=== PATIENT | female | born 1950 | race Caucasian/White ===

== ENCOUNTER 2017-07-09 21:33 | Emergency (ER) | payer MEDICARE, OTHER | END 2017-07-10 04:23 | disposition home or self-care (01) | LOC: FTE 21:33 | DX: I51.7 Cardiomegaly (principal) | CPT/HCPCS: 71045; 99283-25 ==

== ENCOUNTER 2017-12-04 23:07 | Inpatient (IN) | payer MEDICARE, OTHER ==
[2017-12-05 00:07] LABS: ADD MAN DIFF? NO
[2017-12-05 00:09] LABS: BASOPHILS % 0.4 % (0.0-2.0); EOSINOPHILS # 0.1 10^3/ul (0.0-0.5); EOSINOPHILS % 1.3 % (0.0-7.0); HEMATOCRIT 25.8 % (37.0-47.0); HEMOGLOBIN 8.1 g/dl (12.0-16.0); LYMPHOCYTES # 3.7 10^3/ul (0.8-2.9); LYMPHOCYTES % 33.8 % (15.0-51.0); MEAN CORPUSCULAR HEMOGLOBIN 29.6 pg (29.0-33.0); MEAN CORPUSCULAR HGB CONC 31.4 g/dl (32.0-37.0); MEAN CORPUSCULAR VOLUME 94.2 fl (82.0-101.0); MONOCYTE # 0.9 10^3/ul (0.3-0.9); MONOCYTES % 7.7 % (0.0-11.0); NEUTROPHIL # 6.2 10^3/ul (1.6-7.5); NEUTROPHILS % 56.4 % (39.0-77.0); PLATELET COUNT 344 10^3/UL (140-415); RED BLOOD COUNT 2.74 10^6/ul (4.20-5.40); RED CELL DISTRIBUTION WIDTH 13.4 % (11.5-14.5)
[2017-12-05 00:33] LABS: ANION GAP 14 (8-16); BLOOD UREA NITROGEN 40 mg/dl (7-20); CALCIUM 8.2 mg/dl (8.4-10.2); CARBON DIOXIDE 24 mmol/L (21-31); CHLORIDE 113 mmol/L (97-110); CREATININE 3.68 mg/dl (0.44-1.00); GLUCOSE 106 mg/dl (70-220); POTASSIUM 4.2 mmol/L (3.5-5.1); SODIUM 147 mmol/L (135-144)
[2017-12-05 00:34] LABS: INR 0.92; PROTIME 12.4 Sec (11.9-14.9)
[2017-12-05 00:39] LABS: PARTIAL THROMBOPLASTIN TIME 31.5 Sec (25.0-35.0)
[2017-12-05 01:30] LABS: ADD UMIC YES; UR AMORPHOUS CRYSTAL FEW /HPF (NONE SEEN); UR ASCORBIC ACID NEGATIVE (NEGATIVE); UR BACTERIA FEW /HPF (NONE SEEN); UR BILIRUBIN (Dip) NEGATIVE (NEGATIVE); UR BLOOD (Dip) 1+ mg/dL (NEGATIVE); UR CLARITY SLIGHTLY CLOUDY (CLEAR); UR COLOR STRAW (YELLOW); UR GLUCOSE (Dip) 1+ mg/dL (NEGATIVE); UR KETONES (Dip) NEGATIVE (NEGATIVE); UR LEUKOCYTE ESTERASE (Dip) 2+ Leu/ul (NEGATIVE); UR NITRITE (Dip) NEGATIVE (NEGATIVE); UR RBC 10 /HPF (0-5); UR SPECIFIC GRAVITY (Dip) 1.005 (1.003-1.030); UR SQUAMOUS EPITHELIAL CELL FEW /HPF (FEW); UR TOTAL PROTEIN (Dip) NEGATIVE (NEGATIVE); UR UROBILINOGEN (Dip) NEGATIVE (NEGATIVE); UR WBC 12 /HPF (0-5)
[2017-12-05] MEDS ORDERED: NACL 0.9% 3 ML SYG IV (02:00)
[2017-12-05] MEDS ORDERED: BISACODYL (EC) 5 MG TAB PO (02:00)
[2017-12-05 04:13] LABS: SODIUM,URINE RANDOM 67 mmol/L (30-90)
[2017-12-05 04:49] LABS: OSMOLALITY 305 mOsm/kg (280-295)
[2017-12-05 05:24] LABS: OSMOLALITY,URINE 251 mOsm/kg (250-1200)
[2017-12-05 07:16] LABS: ADD UMIC YES; UR ASCORBIC ACID NEGATIVE (NEGATIVE); UR BACTERIA FEW /HPF (NONE SEEN); UR BILIRUBIN (Dip) NEGATIVE (NEGATIVE); UR BLOOD (Dip) 1+ mg/dL (NEGATIVE); UR CLARITY CLEAR (CLEAR); UR COLOR COLORLESS (YELLOW); UR GLUCOSE (Dip) 1+ mg/dL (NEGATIVE); UR KETONES (Dip) NEGATIVE (NEGATIVE); UR LEUKOCYTE ESTERASE (Dip) 3+ Leu/ul (NEGATIVE); UR NITRITE (Dip) NEGATIVE (NEGATIVE); UR RBC 3 /HPF (0-5); UR SPECIFIC GRAVITY (Dip) 1.006 (1.003-1.030); UR SQUAMOUS EPITHELIAL CELL FEW /HPF (FEW); UR TOTAL PROTEIN (Dip) NEGATIVE (NEGATIVE); UR UROBILINOGEN (Dip) NEGATIVE (NEGATIVE); UR WBC 4 /HPF (0-5)
[2017-12-05 09:04] LABS: HAAIG REFLEX REFLEX FILED
[2017-12-05] MEDS: FERROUS SULFATE (EC) 325 MG TAB PO ×2 (09:30→21:04)
[2017-12-05] MEDS: ACETAMINOPHEN 325 MG TAB PO ×2 (09:30→21:55)
[2017-12-05] MEDS: AMLODIPINE 10 MG TAB PO (09:31)
[2017-12-05 10:11] LABS: HEPATITIS B SURFACE ANTIGEN NEGATIVE (NEGATIVE)
[2017-12-05 10:29] LABS: HEPATITIS B CORE ANTIBODY NEGATIVE (NEGATIVE); HEPATITIS C VIRAL ANTIBODY NEGATIVE (NEGATIVE)
[2017-12-05 11:19] LABS: HIV 1&2 ANTIBODY NEGATIVE (NEGATIVE)
[2017-12-05] MEDS: ONDANSETRON 4 MG INJ IV (13:55)
[2017-12-05] MEDS ORDERED: HEPARIN 1000 UNITS/ML 10 ML INJ (18:27)
[2017-12-05] MEDS ORDERED: IOHEXOL 300MG/ML 30 ML BTL (18:27)
[2017-12-05] MEDS ORDERED: LIDOCAINE 1% (MPF) 30 ML INJ (18:27)
[2017-12-05] MEDS ORDERED: HEPARIN 1000 UNITS/NS (A-LINE) 0 ML (18:27)
[2017-12-06] MEDS: HEPARIN 1000 UNITS/ML 10 ML INJ INJ
[2017-12-06] MEDS: HEPARIN 1000 UNITS/ML 10 ML INJ IRR
[2017-12-06] MEDS: LIDOCAINE 1% (MDV) 50 ML INJ INJ
[2017-12-06 05:26] LABS: ADD MAN DIFF? NO
[2017-12-06 05:33] LABS: BASOPHILS % 0.4 % (0.0-2.0); EOSINOPHILS # 0.1 10^3/ul (0.0-0.5); EOSINOPHILS % 1.9 % (0.0-7.0); HEMATOCRIT 23.8 % (37.0-47.0); HEMOGLOBIN 7.5 g/dl (12.0-16.0); LYMPHOCYTES # 2.7 10^3/ul (0.8-2.9); LYMPHOCYTES % 35.5 % (15.0-51.0); MEAN CORPUSCULAR HEMOGLOBIN 30.1 pg (29.0-33.0); MEAN CORPUSCULAR HGB CONC 31.5 g/dl (32.0-37.0); MEAN CORPUSCULAR VOLUME 95.6 fl (82.0-101.0); MONOCYTE # 0.7 10^3/ul (0.3-0.9); NEUTROPHILS % 52.8 % (39.0-77.0); PLATELET COUNT 308 10^3/UL (140-415); RED BLOOD COUNT 2.49 10^6/ul (4.20-5.40); RED CELL DISTRIBUTION WIDTH 13.1 % (11.5-14.5)
[2017-12-06 05:33] LABS: WHITE BLOOD COUNT 7.5 10^3/ul (4.8-10.8)
[2017-12-06 05:34] LABS: RETICULOCYTE COUNT # 0.033 X10^6 (0.020-0.110); RETICULOCYTE COUNT % 1.4 % (0.5-1.5)
[2017-12-06 05:34] LABS: RETICULOCYTE RBC 2.44
[2017-12-06 05:43] LABS: ALANINE AMINOTRANSFERASE 14 IU/L (13-69); ALBUMIN 3.4 g/dl (3.3-4.9); ALBUMIN/GLOBULIN RATIO 1.13; ALKALINE PHOSPHATASE 140 IU/L (42-121); ANION GAP 15 (8-16); ASPARTATE AMINO TRANSFERASE 12 IU/L (15-46); BILIRUBIN,INDIRECT 0.2 mg/dl (0-1.1); BILIRUBIN,TOTAL 0.2 mg/dl (0.2-1.3); BLOOD UREA NITROGEN 43 mg/dl (7-20); CALCIUM 8.2 mg/dl (8.4-10.2); CARBON DIOXIDE 23 mmol/L (21-31); CHLORIDE 112 mmol/L (97-110); CHOL/HDL RATIO 4.2 RATIO; CHOLESTEROL 158 mg/dl (100-200); GLUCOSE 99 mg/dl (70-220); HDL CHOLESTEROL 37 mg/dl (35-98); IRON 50 ug/dl (35-150); LDL CHOLESTEROL,CALCULATED 84 mg/dl; MAGNESIUM 2.1 mg/dl (1.7-2.5); POTASSIUM 4.2 mmol/L (3.5-5.1); SODIUM 146 mmol/L (135-144); TOTAL PROTEIN 6.4 g/dl (6.1-8.1); TRIGLYCERIDES 183 mg/dl (0-149)
[2017-12-06 05:52] LABS: % IRON SATURATION 20 % SAT (22-52); TOTAL IRON BINDING CAPACITY 246 ug/dl (241-421)
[2017-12-06] MEDS: FERROUS SULFATE (EC) 325 MG TAB PO ×2 (08:37→21:09)
[2017-12-06] MEDS: AMLODIPINE 10 MG TAB PO (08:37)
[2017-12-06] MEDS ORDERED: PROPOFOL 20 ML (10:16)
[2017-12-06] MEDS ORDERED: FENTAnyl 50 MCG/ML VIAL (10:16)
[2017-12-06] MEDS ORDERED: CEFAZOLIN 1 GM INJ (10:16)
[2017-12-06] MEDS ORDERED: MIDAZOLAM 1 MG/ML 2 ML INJ (10:16)
[2017-12-06] MEDS ORDERED: LIDOCAINE 1% (MDV) 20 ML INJ ×2 (10:23→10:38)
[2017-12-06] MEDS ORDERED: HEPARIN 1000 UNITS/ML 10 ML INJ (10:25)
[2017-12-06 10:33] LABS: HEMOGLOBIN A1C 5.6 % (0-5.9)
[2017-12-06] MEDS ORDERED: LIDOCAINE 2% (SDV) 5 ML INJ (10:38)
[2017-12-06] MEDS ORDERED: PHENYLephrine (100 MCG/ML) 5ML SYG (10:39)
[2017-12-06] MEDS ORDERED: LIDOCAINE 1% (MPF) 30 ML INJ (10:40)
[2017-12-06] MEDS ORDERED: METOCLOPRAMIDE 10 MG INJ (10:46)
[2017-12-06] MEDS ORDERED: ONDANSETRON 4 MG INJ (10:46)
[2017-12-06] MEDS ORDERED: DEXAMETHASONE 4 MG/ML 1 ML INJ (10:47)
[2017-12-06] MEDS ORDERED: HYDROmorphONE (0.2 MG/ML) 10ML SYG IV ×3 (11:20→11:30)
[2017-12-06] MEDS: HYDROmorphONE (0.2 MG/ML) 10ML SYG IV ×2 (11:23→11:29)
[2017-12-06] MEDS ORDERED: EPHEDrine SULFATE 50 MG/5 ML SYG IV (11:30)
[2017-12-06] MEDS ORDERED: OXYCODONE/ACETAMINOPHEN (5/325) TAB PO (11:30)
[2017-12-06] MEDS ORDERED: LABETALOL HCL 20MG INJ IV (11:30)
[2017-12-06] MEDS ORDERED: ONDANSETRON 4 MG INJ IV (11:30)
[2017-12-06] MEDS ORDERED: hydrALAzine 20 MG INJ IV (11:30)
[2017-12-06] MEDS ORDERED: FENTAnyl 50 MCG/ML VIAL IV ×3 (11:30)
[2017-12-06] MEDS ORDERED: METOCLOPRAMIDE 10 MG INJ IV (11:30)
[2017-12-06] MEDS: EPOETIN 4000 UNITS/1 ML INJ (ESRD) SC (17:19)
[2017-12-06] MEDS: HEPARIN 1000 UNITS/ML 10 ML INJ CATHETER (18:21)
[2017-12-07] MEDS: DOCUSATE SODIUM 100 MG CAP PO (00:46)
[2017-12-07] MEDS: ACETAMINOPHEN 325 MG TAB PO ×3 (00:46→21:30)
[2017-12-07 05:28] LABS: ADD MAN DIFF? NO
[2017-12-07 05:41] LABS: BASOPHILS % 0.1 % (0.0-2.0); HEMATOCRIT 24.7 % (37.0-47.0); HEMOGLOBIN 7.9 g/dl (12.0-16.0); LYMPHOCYTES # 1.4 10^3/ul (0.8-2.9); LYMPHOCYTES % 13.2 % (15.0-51.0); MEAN CORPUSCULAR HEMOGLOBIN 29.4 pg (29.0-33.0); MEAN CORPUSCULAR VOLUME 91.8 fl (82.0-101.0); MONOCYTE # 0.5 10^3/ul (0.3-0.9); MONOCYTES % 4.7 % (0.0-11.0); NEUTROPHIL # 8.7 10^3/ul (1.6-7.5); NEUTROPHILS % 81.4 % (39.0-77.0); PLATELET COUNT 309 10^3/UL (140-415); RED BLOOD COUNT 2.69 10^6/ul (4.20-5.40); RED CELL DISTRIBUTION WIDTH 12.8 % (11.5-14.5)
[2017-12-07 05:41] LABS: WHITE BLOOD COUNT 10.7 10^3/ul (4.8-10.8)
[2017-12-07 05:54] LABS: ANION GAP 17 (8-16); BLOOD UREA NITROGEN 33 mg/dl (7-20); CALCIUM 8.4 mg/dl (8.4-10.2); CARBON DIOXIDE 24 mmol/L (21-31); CHLORIDE 106 mmol/L (97-110); CREATININE 3.17 mg/dl (0.44-1.00); GLUCOSE 126 mg/dl (70-220); POTASSIUM 4.4 mmol/L (3.5-5.1); SODIUM 143 mmol/L (135-144)
[2017-12-07] MEDS: AMLODIPINE 10 MG TAB PO (09:00)
[2017-12-07] MEDS: FERROUS SULFATE (EC) 325 MG TAB PO ×2 (09:22→21:30)
[2017-12-07] MEDS: ONDANSETRON 4 MG INJ IV (17:19)
[2017-12-07] MEDS: HEPARIN 1000 UNITS/ML 10 ML INJ CATHETER (17:23)
[2017-12-07] MEDS: SOD FERRIC GLUC COMPLX 125 MG in SOD CHLORIDE 0.9% 100 ML IVPB (19:04)
[2017-12-08 05:58] LABS: ADD MAN DIFF? NO
[2017-12-08 06:08] LABS: BASOPHIL # 0.1 10^3/ul (0.0-0.1); BASOPHILS % 0.5 % (0.0-2.0); EOSINOPHILS # 0.1 10^3/ul (0.0-0.5); EOSINOPHILS % 0.6 % (0.0-7.0); HEMATOCRIT 25.4 % (37.0-47.0); HEMOGLOBIN 8.1 g/dl (12.0-16.0); LYMPHOCYTES % 28.5 % (15.0-51.0); MEAN CORPUSCULAR HEMOGLOBIN 29.8 pg (29.0-33.0); MEAN CORPUSCULAR HGB CONC 31.9 g/dl (32.0-37.0); MEAN CORPUSCULAR VOLUME 93.4 fl (82.0-101.0); MEAN PLATELET VOLUME 10.2 fl (7.4-10.4); NEUTROPHIL # 6.5 10^3/ul (1.6-7.5); NEUTROPHILS % 60.6 % (39.0-77.0); PLATELET COUNT 273 10^3/UL (140-415); RED BLOOD COUNT 2.72 10^6/ul (4.20-5.40); RED CELL DISTRIBUTION WIDTH 13.2 % (11.5-14.5)
[2017-12-08 06:08] LABS: WHITE BLOOD COUNT 10.7 10^3/ul (4.8-10.8)
[2017-12-08 06:31] LABS: ANION GAP 18 (8-16); BLOOD UREA NITROGEN 35 mg/dl (7-20); CALCIUM 8.3 mg/dl (8.4-10.2); CARBON DIOXIDE 28 mmol/L (21-31); CHLORIDE 102 mmol/L (97-110); CREATININE 3.05 mg/dl (0.44-1.00); GLUCOSE 105 mg/dl (70-220); POTASSIUM 3.9 mmol/L (3.5-5.1); SODIUM 144 mmol/L (135-144)
[2017-12-08] MEDS: FERROUS SULFATE (EC) 325 MG TAB PO ×2 (08:09→20:22)
[2017-12-08] MEDS: AMLODIPINE 10 MG TAB PO (08:09)
[2017-12-08] MEDS: SOD FERRIC GLUC COMPLX 125 MG in SOD CHLORIDE 0.9% 100 ML IVPB (16:09)
[2017-12-08] MEDS: ACETAMINOPHEN 325 MG TAB PO (16:12)
[2017-12-08] MEDS: FAMOTIDINE 20 MG TAB PO (20:22)
[2017-12-08 20:52] LABS: HEPATITIS B SURFACE ANTIBODY NEGATIVE (NEGATIVE)
[2017-12-09] MEDS: ONDANSETRON 4 MG INJ IV (00:54)
[2017-12-09] MEDS: HEPARIN 1000 UNITS/ML 10 ML INJ CATHETER (02:23)
[2017-12-09 06:12] LABS: ADD MAN DIFF? NO
[2017-12-09 06:18] LABS: WHITE BLOOD COUNT 13.9 10^3/ul (4.8-10.8)
[2017-12-09 06:18] LABS: BASOPHIL # 0.1 10^3/ul (0.0-0.1); BASOPHILS % 0.4 % (0.0-2.0); EOSINOPHILS % 0.2 % (0.0-7.0); HEMATOCRIT 27.1 % (37.0-47.0); HEMOGLOBIN 8.8 g/dl (12.0-16.0); LYMPHOCYTES # 1.8 10^3/ul (0.8-2.9); LYMPHOCYTES % 13.2 % (15.0-51.0); MEAN CORPUSCULAR HEMOGLOBIN 30.1 pg (29.0-33.0); MEAN CORPUSCULAR HGB CONC 32.5 g/dl (32.0-37.0); MEAN CORPUSCULAR VOLUME 92.8 fl (82.0-101.0); MEAN PLATELET VOLUME 10.1 fl (7.4-10.4); MONOCYTE # 1.1 10^3/ul (0.3-0.9); MONOCYTES % 7.7 % (0.0-11.0); NEUTROPHIL # 10.8 10^3/ul (1.6-7.5); NEUTROPHILS % 77.5 % (39.0-77.0); PLATELET COUNT 226 10^3/UL (140-415); RED BLOOD COUNT 2.92 10^6/ul (4.20-5.40); RED CELL DISTRIBUTION WIDTH 13.1 % (11.5-14.5)
[2017-12-09 06:41] LABS: MAGNESIUM 1.9 mg/dl (1.7-2.5)
[2017-12-09 06:45] LABS: ANION GAP 15 (8-16); BLOOD UREA NITROGEN 23 mg/dl (7-20); CALCIUM 8.7 mg/dl (8.4-10.2); CARBON DIOXIDE 29 mmol/L (21-31); CHLORIDE 103 mmol/L (97-110); CREATININE 2.53 mg/dl (0.44-1.00); GLUCOSE 127 mg/dl (70-220); SODIUM 143 mmol/L (135-144)
[2017-12-09] MEDS: FERROUS SULFATE (EC) 325 MG TAB PO (09:27)
[2017-12-09] MEDS: AMLODIPINE 10 MG TAB PO (09:27)
[2017-12-09] MEDS: SOD FERRIC GLUC COMPLX 125 MG in SOD CHLORIDE 0.9% 100 ML IVPB (17:21)
[2017-12-10] MEDS ORDERED: EPOETIN 4000 UNITS/1 ML INJ (ESRD) SC (17:00)
== END 2017-12-09 19:10 | disposition home or self-care (01) | DRG 674 ==
LOC: PP2 12-05 01:48 → E/R 23:07 → PP2 12-05 01:48
PROC: 0JH63XZ Insertion of Tunneled Vascular Access Device into Chest Subcutaneous Tissue and Fascia, Percutaneous Approach (ICD-10-PCS; principal; 2017-12-06 10:02)
PROC: 02HV33Z Insertion of Infusion Device into Superior Vena Cava, Percutaneous Approach (ICD-10-PCS; 2017-12-06 10:07)
PROC: 5A1D70Z Performance of Urinary Filtration, Intermittent, Less than 6 Hours Per Day (ICD-10-PCS; 2017-12-06 10:07)
PROC: 5A1D70Z Performance of Urinary Filtration, Intermittent, Less than 6 Hours Per Day (ICD-10-PCS; 2017-12-06 10:07)
PROC: 5A1D70Z Performance of Urinary Filtration, Intermittent, Less than 6 Hours Per Day (ICD-10-PCS; 2017-12-06 10:07)
PROC: 5A1D70Z Performance of Urinary Filtration, Intermittent, Less than 6 Hours Per Day (ICD-10-PCS; 2017-12-06 10:07)
DX: I12.0 Hypertensive chronic kidney disease with stage 5 chronic kidney disease or end stage renal disease (principal); N18.5 Chronic kidney disease, stage 5; N17.9 Acute kidney failure, unspecified; D63.8 Anemia in other chronic diseases classified elsewhere; E78.5 Hyperlipidemia, unspecified
CPT/HCPCS: 36415; 71045; 76775; 80048; 80053; 80061; 81001; 82607; 82728; 83036; 83540; 83735; 83930; 83935; 84300; 84443; 85025; 85045; 85610; 85730; 86703; 86704; 86706; 86709; 86803; 86850; 86900; 86901; 87340; 90935; 93005; 93923; 93970; 99285-25; G0378

== ENCOUNTER 2017-12-10 19:22 | Emergency (ER) | payer MEDICARE, OTHER | END 2017-12-10 23:00 | disposition home or self-care (01) | LOC: FTE 19:22 | DX: Z00.00 Encounter for general adult medical examination without abnormal findings (principal); R05 Cough | CPT/HCPCS: 71046; 99283-25 ==

== ENCOUNTER → 2018-09-29 | Outpatient (CLI) | payer MEDICARE, OTHER | END | disposition home or self-care (01) | LOC: C/S 13:10 | DX: M25.512 Pain in left shoulder (principal) | CPT/HCPCS: 73200 ==

== ENCOUNTER 2019-02-19 15:33 | Inpatient (IN) | payer MEDICARE, OTHER ==
[2019-02-19 16:24] LABS: ADD MAN DIFF? NO
[2019-02-19 16:27] LABS: BASOPHILS % 0.4 % (0.0-2.0); EOSINOPHILS # 0.1 10^3/ul (0.0-0.5); EOSINOPHILS % 0.6 % (0.0-7.0); HEMATOCRIT 35.4 % (37.0-47.0); HEMOGLOBIN 12.2 g/dl (12.0-16.0); LYMPHOCYTES # 2.2 10^3/ul (0.8-2.9); LYMPHOCYTES % 20.6 % (15.0-51.0); MEAN CORPUSCULAR HEMOGLOBIN 32.7 pg (29.0-33.0); MEAN CORPUSCULAR HGB CONC 34.5 g/dl (32.0-37.0); MEAN CORPUSCULAR VOLUME 94.9 fl (82.0-101.0); MEAN PLATELET VOLUME 9.7 fl (7.4-10.4); MONOCYTE # 1.1 10^3/ul (0.3-0.9); MONOCYTES % 10.4 % (0.0-11.0); NEUTROPHIL # 7.2 10^3/ul (1.6-7.5); NEUTROPHILS % 67.5 % (39.0-77.0); PLATELET COUNT 218 10^3/UL (140-415); RED BLOOD COUNT 3.73 10^6/ul (4.20-5.40); RED CELL DISTRIBUTION WIDTH 13.6 % (11.5-14.5)
[2019-02-19 16:27] LABS: WHITE BLOOD COUNT 10.6 10^3/ul (4.8-10.8)
[2019-02-19 16:40] LABS: ADD UMIC YES; UR ASCORBIC ACID NEGATIVE (NEGATIVE); UR BACTERIA FEW /HPF (NONE SEEN); UR BILIRUBIN (Dip) NEGATIVE (NEGATIVE); UR BLOOD (Dip) 3+ mg/dL (NEGATIVE); UR CLARITY CLOUDY (CLEAR); UR COLOR RED (YELLOW); UR GLUCOSE (Dip) 1+ mg/dL (NEGATIVE); UR KETONES (Dip) NEGATIVE (NEGATIVE); UR LEUKOCYTE ESTERASE (Dip) 1+ Leu/ul (NEGATIVE); UR MUCUS FEW /HPF (NONE SEEN); UR NITRITE (Dip) NEGATIVE (NEGATIVE); UR RBC 20 /HPF (0-5); UR SPECIFIC GRAVITY (Dip) 1.009 (1.003-1.030); UR SQUAMOUS EPITHELIAL CELL MANY /HPF (FEW); UR TOTAL PROTEIN (Dip) 2+ mg/dl (NEGATIVE); UR UROBILINOGEN (Dip) NEGATIVE (NEGATIVE); UR WBC 32 /HPF (0-5)
[2019-02-19 17:23] LABS: ALBUMIN 5.5 g/dl (3.3-4.9); ALBUMIN/GLOBULIN RATIO 1.17; ALKALINE PHOSPHATASE 95 IU/L (42-121); ANION GAP 7 (5-13); ASPARTATE AMINO TRANSFERASE 234 IU/L (15-46); BILIRUBIN,INDIRECT 1.6 mg/dl (0-1.1); BILIRUBIN,TOTAL 1.6 mg/dl (0.2-1.3); BLOOD UREA NITROGEN 24 mg/dl (7-20); CALCIUM 8.6 mg/dl (8.4-10.2); CARBON DIOXIDE 37 mmol/L (21-31); CHLORIDE 96 mmol/L (97-110); CREATININE 2.96 mg/dl (0.44-1.00); Estimated GFR 16 mL/min (>60); GLUCOSE 128 mg/dl (70-220); SODIUM 140 mmol/L (135-144); TOTAL PROTEIN 10.2 g/dl (6.1-8.1)
[2019-02-19 17:26] LABS: ALANINE AMINOTRANSFERASE < 6 IU/L (13-69)
[2019-02-19 17:27] LABS: POTASSIUM 3.9 mmol/L (3.5-5.1)
[2019-02-19 17:30] LABS: INR 0.95; PROTIME 12.8 Sec (11.9-14.9)
[2019-02-19 17:31] LABS: PARTIAL THROMBOPLASTIN TIME 28.3 Sec (23.0-35.0)
[2019-02-19 17:37] LABS: TROPONIN-I 0.409 ng/ml (0.000-0.120)
[2019-02-19] MEDS: ASPIRIN 325 MG TAB PO (18:02)
[2019-02-19] MEDS: CEFTRIAXONE 1 GM/50 ML (PMX) 50 ML IVPB (18:17)
[2019-02-19] MEDS ORDERED: ONDANSETRON 4 MG INJ IV (19:00)
[2019-02-19] MEDS ORDERED: ACETAMINOPHEN 325 MG TAB PO ×2 (19:00→20:00)
[2019-02-19] MEDS ORDERED: morphine 2 MG INJ IV (20:00)
[2019-02-19] MEDS ORDERED: DOCUSATE SODIUM 100 MG CAP PO (20:00)
[2019-02-19] MEDS ORDERED: NACL 0.9% 3 ML SYG IV (20:00)
[2019-02-19] MEDS ORDERED: NITROGLYCERIN (SL) 0.4 MG TAB SL (20:00)
[2019-02-19] MEDS ORDERED: HYDROCODONE/APAP (5/325) TAB PO (20:00)
[2019-02-19] MEDS ORDERED: ALPRAZOLAM 1 MG TAB PO (20:00)
[2019-02-19] MEDS ORDERED: CALCIUM ACETATE PO (21:00)
[2019-02-19] MEDS: ONDANSETRON 4 MG INJ IV (21:57)
[2019-02-19 22:36] LABS: CREATINE KINASE 125 IU/L (23-200)
[2019-02-19 22:49] LABS: CK INDEX 0.5; CK-MB 0.59 ng/ml (0.0-2.4)
[2019-02-20 03:13] LABS: ADD MAN DIFF? NO
[2019-02-20 03:15] LABS: BASOPHIL # 0.1 10^3/ul (0.0-0.1); BASOPHILS % 0.6 % (0.0-2.0); EOSINOPHILS # 0.1 10^3/ul (0.0-0.5); EOSINOPHILS % 0.9 % (0.0-7.0); HEMOGLOBIN 11.7 g/dl (12.0-16.0); LYMPHOCYTES # 2.8 10^3/ul (0.8-2.9); LYMPHOCYTES % 26.8 % (15.0-51.0); MEAN CORPUSCULAR HEMOGLOBIN 31.5 pg (29.0-33.0); MEAN CORPUSCULAR HGB CONC 32.5 g/dl (32.0-37.0); MEAN CORPUSCULAR VOLUME 96.8 fl (82.0-101.0); MEAN PLATELET VOLUME 10.1 fl (7.4-10.4); MONOCYTE # 1.2 10^3/ul (0.3-0.9); MONOCYTES % 11.3 % (0.0-11.0); NEUTROPHIL # 6.1 10^3/ul (1.6-7.5); NEUTROPHILS % 59.8 % (39.0-77.0); PLATELET COUNT 218 10^3/UL (140-415); RED BLOOD COUNT 3.72 10^6/ul (4.20-5.40); RED CELL DISTRIBUTION WIDTH 13.5 % (11.5-14.5)
[2019-02-20 03:15] LABS: WHITE BLOOD COUNT 10.3 10^3/ul (4.8-10.8)
[2019-02-20 03:31] LABS: CREATINE KINASE 133 IU/L (23-200)
[2019-02-20 03:31] LABS: HEMOGLOBIN A1C 4.9 % (0-5.9)
[2019-02-20 03:40] LABS: ALANINE AMINOTRANSFERASE 11 IU/L (13-69); ALBUMIN 4.4 g/dl (3.3-4.9); ALBUMIN/GLOBULIN RATIO 1.29; ALKALINE PHOSPHATASE 81 IU/L (42-121); ANION GAP 6 (5-13); ASPARTATE AMINO TRANSFERASE 176 IU/L (15-46); BLOOD UREA NITROGEN 36 mg/dl (7-20); CALCIUM 8.6 mg/dl (8.4-10.2); CARBON DIOXIDE 37 mmol/L (21-31); CHLORIDE 98 mmol/L (97-110); CHOL/HDL RATIO 4.8 RATIO; CHOLESTEROL 194 mg/dl (100-200); CREATININE 3.76 mg/dl (0.44-1.00); Estimated GFR 12 mL/min (>60); GLUCOSE 119 mg/dl (70-220); HDL CHOLESTEROL 40 mg/dl (35-98); LDL CHOLESTEROL,CALCULATED 101 mg/dl; MAGNESIUM 2.1 mg/dl (1.7-2.5); PHOSPHORUS 3.5 mg/dl (2.5-4.9); POTASSIUM 3.9 mmol/L (3.5-5.1); TOTAL PROTEIN 7.8 g/dl (6.1-8.1); TRIGLYCERIDES 265 mg/dl (0-149)
[2019-02-20 03:42] LABS: SODIUM 141 mmol/L (135-144)
[2019-02-20 03:44] LABS: CK INDEX 0.4; CK-MB 0.47 ng/ml (0.0-2.4)
[2019-02-20] MEDS: SOD CHLORIDE 0.9% 1,000 ML IV ×2 (06:00→19:32)
[2019-02-20] MEDS: HEPARIN 5,000 UNIT/1 ML VIAL SC ×3 (09:00→20:28)
[2019-02-20] MEDS: ASPIRIN 81 MG TAB PO (13:20)
[2019-02-20] MEDS: CALCIUM ACETATE 667 MG CAP PO ×2 (13:21→17:15)
[2019-02-20] MEDS: LOSARTAN 50 MG TAB PO (13:22)
[2019-02-20] MEDS: PANTOPRAZOLE 40 MG INJ IV (17:14)
[2019-02-20] MEDS: CEFTRIAXONE 1 GM/50 ML (PMX) 50 ML IVPB (17:15)
[2019-02-20 18:02] LABS: CREATINE KINASE 185 IU/L (23-200)
[2019-02-20 18:15] LABS: CK INDEX 0.2; CK-MB 0.34 ng/ml (0.0-2.4)
[2019-02-20 18:18] LABS: TROPONIN-I 0.531 ng/ml (0.000-0.120)
[2019-02-20] MEDS: ATORVASTATIN 20 MG TAB PO (20:13)
[2019-02-21 01:39] LABS: CREATINE KINASE 203 IU/L (23-200)
[2019-02-21 01:53] LABS: CK INDEX 0.1; CK-MB 0.27 ng/ml (0.0-2.4)
[2019-02-21 01:59] LABS: TROPONIN-I 0.386 ng/ml (0.000-0.120)
[2019-02-21] MEDS: PANTOPRAZOLE 40 MG INJ IV ×2 (06:09→17:34)
[2019-02-21 06:48] LABS: ALANINE AMINOTRANSFERASE 21 IU/L (13-69); ALBUMIN 3.8 g/dl (3.3-4.9); ALBUMIN/GLOBULIN RATIO 1.18; ALKALINE PHOSPHATASE 84 IU/L (42-121); ANION GAP 7 (5-13); ASPARTATE AMINO TRANSFERASE 87 IU/L (15-46); BILIRUBIN,INDIRECT 0.6 mg/dl (0-1.1); BILIRUBIN,TOTAL 0.6 mg/dl (0.2-1.3); BLOOD UREA NITROGEN 53 mg/dl (7-20); CALCIUM 9.1 mg/dl (8.4-10.2); CARBON DIOXIDE 29 mmol/L (21-31); CHLORIDE 102 mmol/L (97-110); CREATININE 5.97 mg/dl (0.44-1.00); Estimated GFR 7 mL/min (>60); GLUCOSE 85 mg/dl (70-220); SODIUM 138 mmol/L (135-144)
[2019-02-21] MEDS: CALCIUM ACETATE 667 MG CAP PO ×2 (08:37→17:34)
[2019-02-21] MEDS: LOSARTAN 50 MG TAB PO (08:37)
[2019-02-21] MEDS: ASPIRIN 81 MG TAB PO (08:37)
[2019-02-21] MEDS: HEPARIN 5,000 UNIT/1 ML VIAL SC ×2 (08:42→20:57)
[2019-02-21] MEDS ORDERED: HEPARIN 5,000 UNIT/1 ML VIAL CATHETER (17:00)
[2019-02-21] MEDS ORDERED: SODIUM CHLORIDE 0.9% 1L BAG IV (17:00)
[2019-02-21] MEDS: CEFTRIAXONE 1 GM/50 ML (PMX) 50 ML IVPB (17:34)
[2019-02-21] MEDS: SOD CHLORIDE 0.9% 1,000 ML IV ×2 (19:32→20:59)
[2019-02-21] MEDS: METOPROLOL 25 MG TAB PO (20:46)
[2019-02-21] MEDS: ATORVASTATIN 20 MG TAB PO (20:46)
[2019-02-22] MEDS: ZOLPIDEM 5 MG TAB PO (00:25)
[2019-02-22] MEDS: PANTOPRAZOLE 40 MG INJ IV ×2 (06:28→18:00)
[2019-02-22] MEDS: CALCIUM ACETATE 667 MG CAP PO ×2 (07:55→18:11)
[2019-02-22 08:16] LABS: ANION GAP 7 (5-13); BLOOD UREA NITROGEN 62 mg/dl (7-20); CALCIUM 8.4 mg/dl (8.4-10.2); CARBON DIOXIDE 26 mmol/L (21-31); CHLORIDE 104 mmol/L (97-110); CREATININE 6.49 mg/dl (0.44-1.00); Estimated GFR 6 mL/min (>60); GLUCOSE 96 mg/dl (70-220); POTASSIUM 4.3 mmol/L (3.5-5.1); SODIUM 137 mmol/L (135-144)
[2019-02-22 08:35] LABS: CK-MB < 0.22 ng/ml (0.0-2.4); TROPONIN-I 0.085 ng/ml (0.000-0.120)
[2019-02-22 08:36] LABS: CK INDEX 0.2; CREATINE KINASE 96 IU/L (23-200)
[2019-02-22 08:50] LABS: HEPATITIS B SURFACE ANTIGEN NEGATIVE (NEGATIVE)
[2019-02-22] MEDS: LOSARTAN 50 MG TAB PO (09:00)
[2019-02-22] MEDS: METOPROLOL 25 MG TAB PO (09:00)
[2019-02-22] MEDS: ASPIRIN 81 MG TAB PO (09:00)
[2019-02-22] MEDS: ONDANSETRON 4 MG INJ IV (09:53)
[2019-02-22] MEDS: HEPARIN 5,000 UNIT/1 ML VIAL SC (09:58)
[2019-02-22] MEDS: REGADENOSON 0.4 MG/5 ML SYG (12:55)
[2019-02-22] MEDS: ALBUMIN HUMAN 25% 100 ML IV (15:25)
[2019-02-22] MEDS: CEFTRIAXONE 1 GM/50 ML (PMX) 50 ML IVPB (18:00)
== END 2019-02-22 20:50 | disposition home or self-care (01) | DRG 313 ==
LOC: TEL 18:34 → E/R 15:33
PROVIDERS: Internal Medicine
PROC: 5A1D70Z Performance of Urinary Filtration, Intermittent, Less than 6 Hours Per Day (ICD-10-PCS; principal; 2019-02-21)
DX: R07.89 Other chest pain (principal); N18.6 End stage renal disease; N39.0 Urinary tract infection, site not specified; I12.0 Hypertensive chronic kidney disease with stage 5 chronic kidney disease or end stage renal disease; R13.10 Dysphagia, unspecified; R31.9 Hematuria, unspecified; Z99.2 Dependence on renal dialysis; D64.9 Anemia, unspecified; E78.5 Hyperlipidemia, unspecified; K20.9 Esophagitis, unspecified; D63.8 Anemia in other chronic diseases classified elsewhere; R47.02 Dysphasia
CPT/HCPCS: 71045; 76775; 78452; 80048; 80053; 80061; 81001; 82550; 82553; 83036; 83735; 84100; 84484; 85025; 85610; 85730; 87086; 87340; 90935; 93005; 93017; 93306; 96374; 99285-25

== ENCOUNTER 2019-03-30 20:23 | Observation (INO) | payer MEDICARE, OTHER ==
[2019-03-30] MEDS: ASPIRIN 81 MG TAB PO (21:07)
[2019-03-30] MEDS: NITROGLYCERIN (SL) 0.4 MG TAB SL (21:08)
[2019-03-31] MEDS ORDERED: NITROGLYCERIN (SL) 0.4 MG TAB SL (04:30)
[2019-03-31] MEDS ORDERED: ALPRAZOLAM 1 MG TAB PO (04:30)
[2019-03-31] MEDS ORDERED: MECLIZINE 25 MG TAB PO (04:30)
[2019-03-31] MEDS ORDERED: ACETAMINOPHEN 325 MG TAB PO ×2 (04:30)
[2019-03-31] MEDS ORDERED: ALBUTEROL/IPRATROPIUM (NEB) 3 ML AMP HHN (04:30)
[2019-03-31] MEDS ORDERED: NACL 0.9% 3 ML SYG IV (04:30)
[2019-03-31] MEDS: LOSARTAN 50 MG TAB PO (09:00)
[2019-03-31] MEDS: ISOSORBIDE MONONITRATE(SR)30 MG TAB PO (09:00)
[2019-03-31] MEDS ORDERED: ALBUMIN HUMAN 25% 100 ML IV (09:30)
[2019-03-31] MEDS ORDERED: SODIUM CHLORIDE 0.9% 1L BAG IV (09:30)
[2019-03-31] MEDS: PANTOPRAZOLE (EC) 40 MG TAB PO (09:53)
[2019-03-31] MEDS: ASPIRIN 81 MG TAB PO (09:53)
[2019-03-31] MEDS: HEPARIN 5,000 UNIT/1 ML VIAL SC ×2 (09:53→20:42)
[2019-03-31] MEDS: HYDROCODONE/APAP (5/325) TAB PO (18:10)
[2019-04-01] MEDS: ASPIRIN 81 MG TAB PO (08:36)
[2019-04-01] MEDS: PANTOPRAZOLE (EC) 40 MG TAB PO (08:36)
[2019-04-01] MEDS: HEPARIN 5,000 UNIT/1 ML VIAL SC ×2 (08:38→21:05)
[2019-04-01] MEDS: ISOSORBIDE MONONITRATE(SR)30 MG TAB PO (08:40)
[2019-04-01] MEDS: LOSARTAN 50 MG TAB PO (08:40)
[2019-04-01] MEDS: HYDROCODONE/APAP (5/325) TAB PO (10:21)
[2019-04-01] MEDS: ONDANSETRON 4 MG INJ IV ×2 (14:33→21:03)
[2019-04-01] MEDS: DULOXETINE 30 MG CAP DR PO (15:58)
[2019-04-02] MEDS: PANTOPRAZOLE (EC) 40 MG TAB PO (08:43)
[2019-04-02] MEDS: DULOXETINE 30 MG CAP DR PO (08:43)
[2019-04-02] MEDS: ASPIRIN 81 MG TAB PO (08:43)
[2019-04-02] MEDS: HEPARIN 5,000 UNIT/1 ML VIAL SC (08:44)
[2019-04-02] MEDS: ISOSORBIDE MONONITRATE(SR)30 MG TAB PO (08:47)
[2019-04-02] MEDS: LOSARTAN 50 MG TAB PO (08:47)
[2019-04-02] MEDS: HEPARIN 1000 UNITS/ML 10 ML INJ HE ×2 (09:39→10:43)
== END 2019-04-02 14:20 | disposition home or self-care (01) ==
LOC: 6WM 22:55 → E/R 20:23
DX: R07.89 Other chest pain (principal); I12.0 Hypertensive chronic kidney disease with stage 5 chronic kidney disease or end stage renal disease; N18.6 End stage renal disease; Z99.2 Dependence on renal dialysis; E11.22 Type 2 diabetes mellitus with diabetic chronic kidney disease; N20.0 Calculus of kidney; E78.5 Hyperlipidemia, unspecified; D63.1 Anemia in chronic kidney disease; R09.89 Other specified symptoms and signs involving the circulatory and respiratory systems
CPT/HCPCS: 36415; 71045; 80048; 80053; 80061; 82550; 82553; 83036; 83690; 83735; 83880; 84100; 84443; 84484; 85025; 87340; 90935; 93005; 96372; 96374; 96376; 99285-25; G0378